=== PATIENT | female | born 1935 | race Caucasian/White ===

== ENCOUNTER → 2017-12-01 | Day surgery (SDC) | payer MEDICARE ==
[2017-11-28 16:24] VITALS: BMI 21.2
[~2017-12-01] MED LIST: GLUCAGON 1 MG/ML VIAL ONE; INDOMETHACIN 50MG SUPPOSITORY RECTAL ONE; IOPAMIDOL-370 50ML BTL MISCELLANE ONE; LACTATED RINGERS 1,000 ML IV NR; LACTATED RINGERS 1,000 ML IV SCH; LEVOFLOXACIN 500MG-D5W PMX 500 MG in DEXTROSE/WATER 1 100ML.BAG IVPB ONE; PROPOFOL 10 MG/ML 20 ML VIAL IV ONE
[2017-12-01 12:29] VITALS: RESP 16; TEMP 97.7
[2017-12-01 12:39] LABS: Glucose,Whole Blood 147 mg/dL (75-99)
[2017-12-01 13:00] LABS: Basophils # (A) 0.1 k/uL (0-0.2); Basophils % (A) 1 %; Eosinophils # (A) 0.2 k/uL (0-0.7); Eosinophils % (A) 2 %; HCT 34.5 % (34.0-46.0); Lymphocytes # (A) 2.2 k/uL (1.0-4.8); Lymphocytes % (A) 17 %; MCHC 31.9 g/dL (31.0-37.0); MCV 91.1 fL (80.0-100.0); Mean Platelet Volume 7.1; Monocytes # (A) 0.6 k/uL (0-1.0); Monocytes % (A) 5 %; Neutrophils # (A) 9.7 k/uL (1.3-7.7); Neutrophils % (A) 74 %; Platelet Count 376 k/uL (150-450); RBC 3.79 m/uL (3.80-5.40); RDW 14.2 % (11.5-15.5)
[2017-12-01 13:12] LABS: Albumin 3.8 g/dL (3.5-5.0); Calcium 9.5 mg/dL (8.4-10.2); INR 1.3 (<1.2); Partial Thromboplastin Time 24.1 sec (22.0-30.0); Potassium 4.1 mmol/L (3.5-5.1); Prothrombin Time 12.2 sec (9.0-12.0); Total Bilirubin 1.6 mg/dL (0.2-1.3); Total Protein 7.1 g/dL (6.3-8.2)
--- NOTE | 2017-12-01 14:01 | P.PCN ---
Date of Procedure: 12/01/17 Procedure(s) Performed: Brief history: Patient is a 82-year-old white female, scheduled for an ERCP as part of evaluation of CBD stone noted on MRCP 3 weeks ago. She hasn't the labs done and was noted to have elevated alkaline phosphatase of 636. Subsequently she had a CT of the abdomen that showed dilated common bile duct with possible stone. Subsequent MRCP did show was one centimeters stone in the distal common duct and hence she is scheduled for an ERCP to evaluate further. She denies any abdominal pain.. Procedure performed: ERCP with biliary sphincterotomy and balloon stone extraction Preoperative diagnoses: Elevated LFTs and CBD stone seen on MRCP IV sedation per anesthesia: Procedure: After informed consent was obtained from the patient and after the risks benefits and complications including bleeding perforation and pancreatitis explained in detail the patient was brought into the endoscopy unit. The patient was placed in prone position and IV conscious sedation was administered by anesthesia under continuous monitoring. The Olympus side-viewing duodenoscope was then inserted into the mouth and esophagus intubated without any difficulty. The scope was gradually advanced into the stomach and duodenum. The major papilla was identified without any difficulty. There was a large periampullary diverticulum identified. Initial cannulation of the major papula resulted in opacification of the common bile duct which appeared dilated measuring at least 1.5 cm in diameter. There was one large stone measuring about 1.3-1.5 cm in the distal common bile duct. There was some intrahepatic biliary ductal dilation noted. At this time the catheter was exchanged over a guidewire and a biliary sphincterotomy was performed at 12 o' clock position and was extended to 1.5 cm in length. Following this a 12 mm balloon was passed over the guidewire into the proximal CBD and gently inflated and withdrawn and the CBD stone was extracted without any difficulty. Repeat occlusion cholangio-was performed and no other filling defects were noted. She tolerated the procedure well. Pancreatic duct was intentionally not cannulated. Patient tolerated the procedure well. Impression: Dilated common bile duct with one large filling defect measuring 1.3-1.5 cm in diameter status post biliary sphincterotomy and balloon stone extraction as described above Pancreatic duct intentionally not cannulated. Recommendations: The findings of this examination were discussed with the patient as well as a family. She was advised to remain on a clear liquid diet for today. She will be seen in office in 2 weeks.
--- NOTE | 2017-12-01 14:09 | FL ---
EXAMINATION TYPE: FL ERCP biliary duct only DATE OF EXAM: 12/01/2017 HISTORY: Flouroscopy time 1 minute and 54 seconds of fluoroscopy provided. IMPRESSION: 1. Fluoroscopy time.
[2017-12-01 14:17] VITALS: BP 175/85; PULSE 59
[2017-12-01 14:25] LABS: Glucose,Whole Blood 221 mg/dL (75-99)
== END ==
LOC: ORWHC2ENDO 11:19
PROVIDERS: ATTEND Internal Medicine Gastroenterology
DX: K80.50 Calculus of bile duct without cholangitis or cholecystitis without obstruction (principal); I44.7 Left bundle-branch block, unspecified; I10 Essential (primary) hypertension; E11.9 Type 2 diabetes mellitus without complications; F39 Unspecified mood [affective] disorder; Z79.84 Long term (current) use of oral hypoglycemic drugs; Z79.899 Other long term (current) drug therapy
CPT/HCPCS: 80053; 85025; 85610; 85730; 74328; 43264; 43262; J1610; J1956; J2704; Q9967